=== PATIENT | female | born 1995 ===

== ENCOUNTER 2024-04-09 13:43 | Emergency (ER) | payer OTHER, BC ==
[2024-04-09] MEDS: Ibuprofen 400 MG Tab PO ONE (15:11)
== END 2024-04-09 15:12 | disposition home or self-care (01) ==
LOC: MW.ED 13:43
DX: S80.01XA Contusion of right knee, initial encounter (principal); V49.9XXA Car occupant (driver) (passenger) injured in unspecified traffic accident, initial encounter
CPT/HCPCS: 73562; 99284; A9270; 99283